=== PATIENT | female | born 1940 | race Caucasian/White ===

== ENCOUNTER → 2024-04-20 15:22 | Outpatient (REF) | payer MEDICARE, BC, SELFPAY | LOC: WDC 15:22 | PROVIDERS: ATTENDING PHYSICIAN Internal Medicine | DX: Z12.31 Encounter for screening mammogram for malignant neoplasm of breast (principal) | CPT/HCPCS: 77063; 77067 ==

== ENCOUNTER → 2024-05-03 10:32 | Outpatient (REF) | payer MEDICARE, BC, SELFPAY | LOC: RAD 10:32 | PROVIDERS: ATTENDING PHYSICIAN Internal Medicine | DX: M54.2 Cervicalgia (principal) | CPT/HCPCS: 72040 ==

== ENCOUNTER → 2024-05-26 06:53 | Outpatient (REF) | payer MEDICARE, BC, SELFPAY | LOC: PAVMRI 06:53 | PROVIDERS: ATTENDING PHYSICIAN Internal Medicine | DX: M79.604 Pain in right leg (principal) | CPT/HCPCS: 72148 ==

== ENCOUNTER → 2024-07-27 08:56 | Outpatient (REF) | payer MEDICARE, BC, SELFPAY | LOC: RAD 08:56 | PROVIDERS: ATTENDING PHYSICIAN Physical Medicine & Rehabilitation; FAMILY PHYSICIAN Internal Medicine | DX: M25.551 Pain in right hip (principal) | CPT/HCPCS: 73502 ==

== ENCOUNTER → 2024-08-03 09:57 | Outpatient (REF) | payer MEDICARE, BC, SELFPAY | LOC: RCS 09:57 | PROVIDERS: ATTENDING PHYSICIAN Internal Medicine Cardiovascular Disease; FAMILY PHYSICIAN Internal Medicine | DX: I35.8 Other nonrheumatic aortic valve disorders (principal) | CPT/HCPCS: 93306 ==

== ENCOUNTER → 2024-09-23 07:20 | Outpatient (REF) | payer MEDICARE, BC, SELFPAY | LOC: PAVMRI 07:20 | PROVIDERS: ATTENDING PHYSICIAN Physician Assistant; FAMILY PHYSICIAN Internal Medicine | DX: M54.12 Radiculopathy, cervical region (principal) | CPT/HCPCS: 72141; 72146; 72148 ==

== ENCOUNTER → 2025-01-17 10:32 | Outpatient (REF) | payer MEDICARE, SELFPAY | LOC: RCS 10:32 | PROVIDERS: ATTENDING PHYSICIAN Pain Medicine Interventional Pain Medicine | DX: Z01.818 Encounter for other preprocedural examination (principal) | CPT/HCPCS: 93005 ==

== ENCOUNTER → 2025-02-07 09:25 | Outpatient (REF) | payer MEDICARE, BC, SELFPAY | LOC: WDC 09:25 | PROVIDERS: ATTENDING PHYSICIAN Internal Medicine | DX: N64.4 Mastodynia (principal) | CPT/HCPCS: 76642; 77062; 77066 ==

== ENCOUNTER 2025-08-01 18:24 | Inpatient (IN) | payer MEDICARE, BC, SELFPAY ==
[2025-08-01] VITALS (24 sets, daily range): BP systolic 154–214; BP diastolic 56–159; BMI 30.3; BMI 29.0
--- NOTE | 2025-08-01 12:32 | ED.GENMED ---
History of Present Illness
General
Chief Complaint: Chest Pain
Time Seen by Provider: 08/01/25 12:32
History of Present Illness
History of Present Illness:
FOCUSED PAST MEDICAL HISTORY
- Diverticular disease with colon resection, skin cancer, bullous pemphigoid
REVIEW OF OLD RECORDS
- Sinus 68, left axis deviation, no significant change from 01/17/2025
Note:
CHIEF COMPLAINT(S)
Chest pressure.
HISTORY OF PRESENT ILLNESS
The patient is an 85-year-old female who presents with complaints of chest pressure, which she describes as annoying but not excruciating. The sensation is particularly noticeable when lying down on one side, enough to wake her up. She also reports
feeling the pressure when stationary, and it occasionally radiates to the shoulder blades. The patient denies coronary disease but reports a history of rheumatic fever as a child. She does not have cardiac valve issues or replacements, and her last
cardiac stress test was performed several years ago. She saw Dr. Olmedo in the past. She has no exertional symptoms.
When the chest is pressed in a specific area, the pressure intensifies, though the patient notes that pressing does not always exacerbate her symptoms. She acknowledges a sensation similar to a weight on her chest, but she denies difficulty
breathing during this episode. No increase in symptoms occurs with exertion, and she did not experience diaphoresis or swelling in the legs. The patient notes she did not take her usual blood pressure medications today, which include Metoprolol and
Losartan, both at a dose of 100 mg.
She recalls experiencing a cough previously for which she visited an ENT and was prescribed an inhaler. Initially, no apparent cause for the cough was found, and it disrupted her �s sleep due to its severity. She also mentions being on
Escitalopram and a potential interaction with the inhaler constituted concerns about rhythm disturbances; however, her current rhythm appears normal.
The patient has a benign essential tremor. She has not noticed an increase in chest pain with exertion or stairs, as she is mostly sedentary at home due to her family�s restrictions on her mobility. She denies recent significant cough or shortness
of breath.
PAST MEDICAL AND SURIGICAL HISTORY
The patient has a history of rheumatic fever as a child.
SOCIAL DETERMINANTS AFFECTING HEALTH
The patient reports family-imposed limitations on using stairs at home, indicating household stress related to mobility concerns.
MEDICATIONS
- Metoprolol 100 mg twice a day
- Losartan 100 mg
- Escitalopram (dosage not specified)
- The patient is also on lisinopril
PHYSICAL EXAM
General: Alert, no acute distress.
Skin: Warm, dry.
Head: Normocephalic, atraumatic.
Neck: Supple, trachea midline.
Eye, ears, nose, mouth, and throat: Oral mucosa moist.
Cardiovascular: Heart is regular with ectopy, normal peripheral perfusion, no edema noted. Occasional ectopy. No significant chest wall tenderness.
Respiratory: Respirations are non-labored.
Gastrointestinal: Abdomen nondistended.
Back: Normal range of motion, normal alignment.
Musculoskeletal: Normal range of motion, normal strength.
Neurological: Alert and oriented to person, place, time, and situation, no focal neurological deficit observed, essential tremor noted to the upper extremities.
Psychiatric: Cooperative, appropriate mood & affect.
PLAN
The plan includes performing blood work and a CT chest to evaluate the cause of the chest pressure further. The patient is advised to review her blood pressure medications since taking both Lisinopril and Losartan is not standard. The attending
physician will consider stopping Lisinopril due to its potential to cause a cough and will discuss this with the patients primary care provider. The cardiac blood work will be conducted to rule out acute coronary syndrome, given the reported chest
pressure.
DIFFERENTIAL DIAGNOSIS
The Differential Diagnosis includes, in no particular order and is not limited to:
1. Gastroesophageal reflux disease (GERD)
2. Costochondritis
3. Musculoskeletal pain
4. Hypertension-related symptoms
5. Anxiety-induced chest pain
6. Angina pectoris
7. Coronary artery disease
8. Pulmonary embolism
9. Congestive heart failure
10. Aortic valve stenosis or insufficiency
RADIOLOGY
- CTA chest obtained which shows no dissection or PE
EKG
- Sinus 68, LVH, left axis deviation, similar appearance on 09/17/2023
LABS
- CBC normal, troponin normal, chemistries
UPDATE
- The patient forgot to take her blood pressure medications today and these were given shortly after arrival. Initial troponin EKG unremarkable. However she did have some ongoing chest discomfort described as pressure but she appeared fairly
comfortable. Blood pressure remained elevated despite giving the antihypertensives. Trying a dose of nitroglycerin as well. She had pain that rating to the back, we did a CTA that showed no sign of dissection or PE.
SUMMARY OF ENCOUNTER
The patient, an 85-year-old female, presented to the emergency department with ongoing chest pressure described as an annoying sensation, often noticeable when lying down or stationary. The pressure occasionally radiates to the shoulder blades.
There was a concern due to her high blood pressure and the nature of her chest symptoms, which can sometimes indicate a cardiac event such as a heart attack. However, initial evaluations did not show diagnostic confirmation of a heart attack or
other acute severe conditions like an aortic dissection or pulmonary embolism. The decision was made to admit the patient for further monitoring and evaluation by a hospitalist to manage the continued symptoms and elevated blood pressure.
DISPOSITION
Admit
MANAGEMENT OF THE PATIENTS CARE WAS DISCUSSED WITH
A hospitalist was involved to evaluate the patient for admission.
MEDICATION RECONCILIATION
The patient reported taking two doses of baby aspirin (81 mg each) earlier today.
MEDICAL DECISION MAKING
- Complexity of Data Reviewed: Chronic conditions affecting care include a history of rheumatic fever and hypertension. The Differential Diagnosis considered includes gastroesophageal reflux disease (GERD), costochondritis, musculoskeletal pain,
hypertension-related symptoms, anxiety-induced chest pain, angina pectoris, coronary artery disease, pulmonary embolism, congestive heart failure, and aortic valve stenosis or insufficiency.
- Data:
Category 3: Management discussion involved consultation with a hospitalist for admission due to ongoing chest pressure and elevated blood pressure.
- Risk: Hospitalization was decided upon due to the risk of complications from ongoing chest pressure and elevated blood pressure, warranting closer monitoring and evaluation.
DIAGNOSIS
1. Chest pain, unspecified (ICD-10: R07.9)
2. Essential (primary) hypertension (ICD-10: I10)
The patient's initial systolic was around 200 but she did not take her morning blood pressure medications which include losartan and metoprolol. Of note she is also supposed to be on lisinopril and I did inform her that could be a cause of her
ongoing cough. She has ongoing chest pressure but she has had 2 unremarkable troponins. Considered discharge however she is markedly hypertensive with systolic still around 200 despite getting her normal antihypertensives and 2 rounds of
nitroglycerin. She overall does feel improved and less chest pressure with the nitroglycerin. She did take aspirin earlier today.
Past History
Past History
ED Past Medical History: HTN, Hypercholesterolemia and Other (Current vomiting/GI issues)
ED Past Surgical History: Cholecystectomy, Gynecological and Other
Social History
Tobacco: Non-smoker
Personal:
Living: with family
Family History
Family History: Other (Noncontributory)
Phy Exam
Physical Exam
Physical Exam:
See HPI
Scores
Heart Score for Chest Pain Patients
STEMI patient?: No
History: Moderately Suspicious
ECG: Nonspecific Repolarization
Age: >/= 65 years
Risk Factors: 1 or 2 Risk Factors
Troponin: </= Normal Limit
Heart Score for Chest Pain Patients: 5
Heart Score Risk: 20.3% MACE over next 6 weeks
Course
Orders/Labs/Results
Orders:
Orders
08/01/25 12:22
EKG [Electrocardiogram (*1)] Urgent
Reason for Study: Chest Pain
EKG- Treatment ONCE
08/01/25 12:50
Losartan [Cozaar] 100 mg PO NOW STA
Metoprolol [Lopressor] 100 mg PO NOW STA
08/01/25 12:52
CT Chest Angio W/wo Iv Contras Urgent
Comment:
Reason For Exam: chest pain to back, hypertensive
08/01/25 13:01
Complete Blood Count/With Diff Urgent
Comprehensive Metabolic Panel Urgent
TSH Reflex To Free T4 Urgent
Troponin I Urgent
08/01/25 15:59
Nitroglycerin Sublingual [Nitrostat (Sublingual)] 0.4 mg SL NOW STA
08/01/25 16:09
Electrocardiogram (*1) Urgent
Reason for Study: Chest Pain
EKG- Treatment ONCE
08/01/25 16:15
Troponin I Urgent
08/01/25 16:54
Nitroglycerin Sublingual [Nitrostat (Sublingual)] 0.4 mg SL NOW STA
Abnormal Lab Results
08/01/25
13:01
Glucose 128 H mg/dl
(70-99)
08/01/25 13:01
08/01/25 13:01
Vital Signs
Initial and Last Documented VS:
Initial Vital Signs
Temp Pulse Resp BP Pulse Ox
36.8 C 70 18 182/90 98
08/01/25 12:19 08/01/25 12:19 08/01/25 12:19 08/01/25 12:19 08/01/25 12:19
Last Documented Vital Signs
Temp Pulse Resp BP Pulse Ox
36.8 C 61 19 197/100 99
08/01/25 12:19 08/01/25 16:15 08/01/25 16:15 08/01/25 16:59 08/01/25 16:15
*Pulse Oximetry
SaO2: 98
Oxygen Mode of Delivery: Room air
Patient hypoxic: no
*Critical Care Note
Total Time (30-74mins, 75-104mins- exclusive of procedures): Not Applicable
ED Attending Note
-
Portions of this chart may have been created with voice recognition software.� Occasional wrong word or��sound alike� substitutions may have occurred due to the inherent limitations of voice recognition software.
Discharge Plan
Departure
Patient Disposition: Admit
Date of Disposition: 08/01/25
Time of Disposition: 17:05
Presentation/result/management discussed w/ accepting MD/DO: Hospitalist
Patient with high blood pressure during this ER visit?: Yes
Discharge Problem:
Chest pain
Prescriptions:
No Action
levothyroxine 75 MCG tablet
75 mcg PO DAILY
escitalopram oxalate 10 MG tablet
10 mg PO HS
metoprolol succinate 100 MG tablet extended release 24 hr
100 mg PO BID
aspirin 81 MG tablet,delayed release (DR/EC)
81 mg PO HS
rosuvastatin 5 MG tablet
5 mg PO HS
PreserVision AREDS-2 1 EACH capsule
1 ea PO BID
meloxicam 7.5 mg tablet
7.5 mg PO DAILY
gabapentin 100 mg capsule
200 mg PO TID
losartan 100 mg tablet
100 mg PO DAILY
amlodipine 5 mg Tablet
5 mg PO DAILY Qty: 30 0RF
prednisone 10 mg tablet
10 mg PO DAILY Qty: 36 0RF
Rx Instructions:
Taper: 50mg daily x 6 days, 30mg daily x 1 day, 20mg daily x 1 day, 10mg daily x 1 day
Referrals:
Marei Rose MD [Family Provider, Internal Medicine]
Interventions
Interventions:
*Risk Screen - Suicide Last Done: 08/01/25 12:19
*General Assessment Last Done: 08/01/25 12:19
*Neglect/Abuse Screening Last Done: 08/01/25 13:18
*ED COVID-19 Vaccine History Last Done: 08/01/25 12:19
*ED Influenza Vaccine History Last Done: 08/01/25 12:19
ED- Cardiac Assessment Last Done: 08/01/25 13:00
Discharge Date and Time
Print Language: MACEDONIAN
[2025-08-01] MEDS: COZAAR 100 MG PO (13:06)
[2025-08-01] MEDS: LOPRESSOR 100 MG PO (13:06)
[2025-08-01 13:09] LABS: Hematocrit 37.8 % (37.0-47.0); Hemoglobin 12.9 g/dL (12.0-16.0); Mean Corp Hgb Conc. 34.1 g/dL (33.0-37.0); Mean Corpuscular Volume 82.4 fL (81.0-99.0); Nucleated Red Blood Cells % 0 %; Platelet Count 168 10^3/uL (130-400); Red Cell Dist. Width 12.9 % (11.5-14.5)
[2025-08-01 13:25] LABS: ALT (SGPT) 15 U/L (0-35); AST (SGOT) 18 U/L (14-36); Albumin 4.4 g/dl (3.5-5.0); Alkaline Phosphatase 66 U/L (38-126); Blood Urea Nitrogen 15 mg/dl (7-17); Calcium 9.4 mg/dl (8.4-10.2); Carbon Dioxide 29 mmol/L (22-30); Chloride 104 mmol/L (98-107); Estimated Creatinine Clearance 55 ml/min; Glucose 128 mg/dl (70-99); Potassium 3.7 mmol/L (3.5-5.1); Sodium 140 mmol/L (135-145); Total Protein 6.8 g/dl (6.3-8.2); eGFR > 60.00
[2025-08-01 13:37] LABS: Troponin I < 0.012 ng/ml
[2025-08-01] MEDS: NITROSTAT (SUBLINGUAL) 0.4 MG SL ×3 (16:13→23:20)
[2025-08-01 16:54] LABS: Troponin I < 0.012 ng/ml
--- NOTE | 2025-08-01 17:01 | HPS.HSE ---
Family Physician
-
Family Physician: Marie Rose
Chief Complaint
-
chest pressure
History of Present Illness
Patient is a 85-year-old female with past medical history significant for hypertension, hyperlipidemia, hypothyroidism and paroxysmal supraventricular tachycardia who presented to [facility] for evaluation of chest pressure. Patient reports that she
started with chest pressure diffusely (R>L) and radiated to back between shoulder blades. She states that the pain does not seem to be triggered by exertion and is intermittent when at rest. Patient denies any diaphoresis, dizziness, shortness of
breath, palpitations, nausea or vomiting.
Medical History
Past Medical History
Past Medical History: Reports Other
Additional Past Medical History:
hypertension
hyperlipidemia
hypothyroidism
paroxysmal supraventricular tachycardia
diverticulitis
Hx rheumatic fever
Hx Lyme disease
Past Surgical History: Reports Other
Additional Past Surgical History:
cholecystectomy
bowel reduction
hysterectomy
skin ca removed
Social History
Tobacco: Non-smoker
Alcohol: None
Drug: None
Personal: Single
Living: Alone
Family History
Family History: Not pertinent
Allergies / Home Medications
Allergies reflects when Allergies were last updated in [employer].
Home Medications with original date entered in [employer]
Allergy/Medication List:
Allergies
Allergy/AdvReac Type Severity Reaction Status Date / Time
Gadolinium-Containing Allergy Unknown Verified 08/01/25 12:54
Contrast Medi
tetanus toxoid, adsorbed Allergy Swelling Verified 08/01/25 12:54
Home Medications
escitalopram oxalate 10 mg tablet 10 mg PO HS 11/16/15
levothyroxine 75 mcg tablet 75 mcg PO DAILY 11/16/15
metoprolol succinate 100 mg tablet,extended release 24 hr 100 mg PO BID 11/16/15
rosuvastatin 5 mg tablet 5 mg PO HS 01/10/16
losartan 100 mg tablet 100 mg PO DAILY 09/17/23
lisinopril 10 mg tablet 10 mg PO BID 08/01/25
Review of Systems
-
History Source: Patient
Constitutional: Denies Fever or Chills
EENT: Denies Sore Throat
Respiratory: Denies Cough or Trouble Breathing
Cardiac: Reports Chest Pain; Denies Diaphoresis, Palpitations or Syncope
Abdomen/GI: Denies Abdominal Pain, Nausea, Vomiting or Diarrhea
: Denies Dysuria, Frequency or Urgency
Musculoskeletal: Denies Joint Pain or Joint Swelling
Skin: Denies Rash
Neurological: Reports Headache; Denies Dizzy, Weakness or Numbness
Physical Exam
Vital Signs
Vital Signs
Temp Pulse Resp BP Pulse Ox
98.3 F 61 19 197/100 99
08/01/25 12:19 08/01/25 16:15 08/01/25 16:15 08/01/25 16:59 08/01/25 16:15
Physical Exam
General: Well Developed, Well Nourished, Conversant and Obese
HEENT: NormoCephalic, Moist mucous membranes, Nose Appears Normal and Ears Appear Normal
Respiratory: Clear and Non Labored Respirations
Cardiac: S1/S2 and Regular Rhythm; No Murmur, Rub, Gallop or Peripheral Edema
Breast: Deferred by me
GI: Soft, Non Tender, Non Distended and Normal Bowel Sounds
Rectal: Deferred by Provider
Genito-urinary: Deferred by me
Musculoskeletal: No Clubbing, No Cyanosis and No Edema
Skin: Warm and IV/Catheter Site
Neuro: Awake, AO x 3 and Nonfocal/grossly intact
Hematologic/Lymphatic: No Lymphadenopathy
Psych: Calm
Laboratory Results
-
08/01/25 13:01
08/01/25 13:01
Laboratory Results
Total Bilirubin 0.8 mg/dl (0.2-1.3) 08/01/25 13:01
AST 18 U/L (14-36) 08/01/25 13:01
ALT 15 U/L (0-35) 08/01/25 13:01
Alkaline Phosphatase 66 U/L (38-126) 08/01/25 13:01
Troponin I < 0.012 ng/ml 08/01/25 16:15
Data Reviewed
-
CT Scan: Report Reviewed by me (Chest Angio: Examination is negative for thoracic aortic dissection or aneurysm. Not mentioned above, the central pulmonary arteries are well-opacified and there is no evidence for central pulmonary embolism. Mild
aortic valvular calcification. Moderate mitral annular calcification. Small focus o)
Medical Tests (Nuc Med, Echo, EKG etc): Report Reviewed by me (EKG: SINUS RHYTHM WITH PREMATURE ATRIAL COMPLEXES MODERATE VOLTAGE CRITERIA FOR LVH, MAY BE NORMAL VARIANT ( R in aVL , [place] product ) NONSPECIFIC ST AND T WAVE ABNORMALITY)
Lab Data: Labs Reviewed by me
Impression/Plan
-
IMPRESSION/PLAN:
#chest pressure 2/2 NSTEMI vs. unstable/stable angina vs. GERD vs. hypertension vs. PE
#hypertension
#hypertensive urgency
diffuse chest pressure radiating to back, intermittent and not triggered by exertion
Trop < 0.012, 0.012, pending
EKG: SINUS RHYTHM WITH PREMATURE ATRIAL COMPLEXES
MODERATE VOLTAGE CRITERIA FOR LVH, MAY BE NORMAL VARIANT ( R in aVL , [place] product )
NONSPECIFIC ST AND T WAVE ABNORMALITY
CT Chest Angio: Examination is negative for thoracic aortic dissection or aneurysm.
Not mentioned above, the central pulmonary arteries are well-opacified and there is no evidence for central pulmonary embolism.
Mild aortic valvular calcification. Moderate mitral annular calcification.
Small focus of parenchymal opacity in the posterolateral and inferior aspect of the left lower lobe along, probably representing atelectasis and/or scar.
- Admit to ICU
- Nicardipine gtt
- Renal Consult
- ECHO
- Aldosterone/Renin ratio
#hyperlipidemia
- continue rosuvastatin
#hypothyroidism
- continue levothyroxine
- check TSH
#paroxysmal supraventricular tachycardia
- continue metoprolol
Code status: full code
DVT prophylaxis: heparin sq
--- NOTE | 2025-08-01 17:11 | W.PN.UPDATE ---
Addendum entered and electronically signed by Rebekah Montenegro MD 08/01/25 18:21:
Given initiation of Nicardipine gtt dropped SBP to 150's and off gtt SBP 170's (which is goal), OK to admit to telemetry with PRN Hydralazine. Discussed with Sketch Artist and Plastic Surgery Assistant. If SBP increases again and persistent over 180's, would
consider transfer to ICU on Nicardipine gtt starting at 2.5 mg/hr
Original Note:
Update Note
Progress Note Update
This is an addendum to H&P written by COUNTER WAITRESS/WAITER Nataly San
I saw and examined the patient.
The COUNTER WAITRESS/WAITER's note was reviewed and I agree with the note.
Comment:
Ms. Rebecca Boucher is a 85 yo woman with hx essential HTN, HUGO, HLD, Hypothyroidism, Depression/Anxiety presents to the ER complaining of chest pressure at rest, radiating to shoulder blades. She reported that she didn't take her blood pressure
medications today. Patient's SBP was in 200's in the ER, despite home regimen 4 hours earlier. Initially started Nicardipine but with small dose her SBP dropped to 150's, now off it is 170's. Ok to admit to telemetry with PRN IV Hydralazine.
Triage VS: T 36.8, P 70, RR 18, BP 182/90, Spo2 92%
On exam patient is AAO x 3, KO, CV: S1, S2, RRR; Chest clear, abdomen benign, trace peal edema
SBP up to 200's
LABS: WBC 6.5, Hg 12.9, PLT 168, Na 140, K+ 3.7, CO2 29, BUN 15, Cr 0.8, Glucose 128, liver enzymes WNL, Trop negative x 2
EKG: NSR with PAC's, no significant changes from prior
CTA
IMPRESSION: Examination is negative for thoracic aortic dissection or aneurysm.
Not mentioned above, the central pulmonary arteries are well-opacified and there is no evidence for central pulmonary embolism.
Mild aortic valvular calcification. Moderate mitral annular calcification.
Small focus of parenchymal opacity in the posterolateral and inferior aspect of the left lower lobe along, probably representing atelectasis and/or scar.
Hypertensive Urgency
-chest pain in setting of uncontrolled BP with negative cardiac enzymes, no dissection or PE; chest pain now resolved with improved BP
-admit to telemetry
-IV Hydralazine PRN
-trend Troponin
-check renin/aldosterone
-TTE from 08/25 with normal biventricular size and systolic function, mild with trace AR
-continue home Metoprolol and Losartan (unclear why also on Lisinopril, will hold)
-Renal consult
HUGO
HLD - SOAKING TANK WORKER Statin
Hypothyroidism - SOAKING TANK WORKER Synthroid
Depression/Anxiety - SOAKING TANK WORKER Lexapro
FULL CODE
76 minutes spent on patient care
[2025-08-01] MEDS: CARDENE 200 IV (17:30)
[2025-08-01] MEDS: TYLENOL 1000 MG PO (18:46)
--- NOTE | 2025-08-01 20:44 | PTCARENOTE ---
Rn marketing research coordinator- Patient's admission assessment completed remotely via phone.
[2025-08-01] MEDS: APRESOLINE 10 MG IV (21:01)
--- NOTE | 2025-08-01 21:15 | PTCARENOTE ---
Pt arrived to unit calm and cooperative, assist x 1 (standby). Pt ambulated with standby from stretcher to bed. Pt AAOx3, no chest pain or discomfort upon arrival, oriented to unit, call caldwell in reach.
[2025-08-01] MEDS: CRESTOR 5 MG PO (22:06)
[2025-08-01] MEDS: LEXAPRO 10 MG PO (22:06)
[2025-08-01] MEDS: TOPROL XL 100 MG PO (22:06)
[2025-08-01 22:14] LABS: Troponin I < 0.012 ng/ml
[2025-08-01 23:34] LABS: Glucose - Point of Care 159 mg/dl (70-99)
--- NOTE | 2025-08-01 23:35 | RR ---
Addendum entered by Carie Isaac RN 08/02/25 04:05:
Pt transferred med tele to IVU*
Addendum entered by Carie Isaac RN 08/02/25 03:59:
[id number]: Timings Approximate
2100:
Pt initially reported as sinus bradycardia. On RN arrival, pt in NSR with prolonged QT per monitor.
BP: 208/72 (manual)
HR: 58
Asymptomatic
PRN IV hydralazine administered for elevated BP- effect pending
RN approved with INSTRUMENT CALIBRATOR notification the administration of metoprolol xl 100 mg PO per order, INSTRUMENT CALIBRATOR notified of BP and PRN medication given
2205:
BP: 187/79
HR: 59
Asymptomatic
metoprolol XL, lexapro, and crestor given per order
INSTRUMENT CALIBRATOR re notified
2223:
BP: 154/91
asymptomatic
INSTRUMENT CALIBRATOR notified
[id number]:
Pt ambulated to bathroom. Upon return pt reports SOB and states 'I don't feel so good' Pt observed shaking and then verbalized chest pressure.
cdl dedicated truck driver notified for additional assessment.
2300:
EKG obtained- reveals afib with RVR
Pt reports chest pain 5/10 radiating to jaw
Pt stated pain began approx 15 min prior
SOB continues. Pale appearance noted.
INSTRUMENT CALIBRATOR notified.
2319:
BP: 148/76 HR: 60 O2: ((%
nitrostat administered per order, no effect
chest pain worsens to 7/10, now radiating to jaw, head
Pt reports increased dizziness and weakness in arms, weak hand grasps
INSTRUMENT CALIBRATOR renotified.
2334:
Due to continuous worsening of sx, FOOD SUPERVISOR activated.
BP: 89/63
AAOx3 but drowsy
IVFs initiated per FOOD SUPERVISOR orders
Transferred to IMU.
VS further EKGs up to handoff recorded by FOOD SUPERVISOR upon transfer.
Original Note:
A Rapid Response was called on this patient, please see Rapid Response form.
[2025-08-01 23:56] LABS: Hematocrit 38.1 % (37.0-47.0); Hemoglobin 13.3 g/dL (12.0-16.0); Mean Corp Hgb Conc. 34.9 g/dL (33.0-37.0); Mean Corpuscular Volume 80.0 fL (81.0-99.0); Platelet Count 193 10^3/uL (130-400); Red Cell Dist. Width 12.9 % (11.5-14.5)
[2025-08-02] VITALS (30 sets, daily range): BP systolic 102–175; BP diastolic 62–96; BMI 28.9
[2025-08-02] MEDS: HEPARIN 4000 UNITS IV (00:06)
[2025-08-02 00:07] LABS: APTT 33.5 Sec (23.4-35.0)
[2025-08-02] MEDS: HEPARIN 25000 UNITS/250 ML IV (00:07)
[2025-08-02 00:08] LABS: Troponin I < 0.012 ng/ml
--- NOTE | 2025-08-02 00:15 | PTCARENOTE ---
Pt received from [facility] after rapid response. Pt on monitor-afib noted. IV NSS bolus infusing. Heparin gtt started. Pt states chest pain decreasing. Assessment as charted.
--- NOTE | 2025-08-02 00:48 | W.PN.UPDATE ---
Update Note
Progress Note Update
Rapid response called for this patient due to c/o chest pain radiating to her jaw and back. She notes worse episode than what brought her to ER earlier. NTG SL given x1 with some cp relief but bp did drop to 80s systolic. Reviewed with Dr. Curran
from [facility] Card[facility]. Will transfer to IVU level of care in ICU. Post interventions she states still with dizziness (has hx vertigo) but bp better at 138/82. Liter of NS..heparin gtt continues. Labs unremarkable. CP better. 12/12. Describes it as
central chest boring into her back. No past hx of afib or manager lab intervention. Had rheumatic fever as child and +murmur. Lungs clear, no edema, room air 97% CT today -PE, - aortic dissection. Echo from 2023 LVEF 65%. Normal biventricular size and
systolic function without regional wall motion abnormality. Mild aortic stenosis with trace aortic regurgitation. Compared to previous echo 12/09/2019 the aortic sclerosis has progressed to mild stenosis. Dr. Curran again updated with new information.
[2025-08-02] MEDS: MELATONIN 5 MG PO (01:02)
--- NOTE | 2025-08-02 01:13 | PTCARENOTE ---
Pt assisted OOB to BSC to void and have BM. Pt requesting something to sleep. Med with melatonin after discussion with CORPORATE LIBRARIAN. Will continue to monitor.
[2025-08-02] MEDS: SYNTHROID 75 MCG PO (05:37)
[2025-08-02 06:11] LABS: Hematocrit 38.5 % (37.0-47.0); Hemoglobin 13.1 g/dL (12.0-16.0); Mean Corp Hgb Conc. 34.0 g/dL (33.0-37.0); Mean Corpuscular Volume 81.7 fL (81.0-99.0); Platelet Count 185 10^3/uL (130-400); Red Cell Dist. Width 13.0 % (11.5-14.5)
[2025-08-02 06:25] LABS: APTT 155.7 Sec (23.4-35.0)
[2025-08-02 06:36] LABS: Blood Urea Nitrogen 12 mg/dl (7-17); Calcium 8.8 mg/dl (8.4-10.2); Carbon Dioxide 25 mmol/L (22-30); Chloride 109 mmol/L (98-107); Estimated Creatinine Clearance 61 ml/min; Glucose 123 mg/dl (70-99); HDL Cholesterol 43 mg/dl; LDL Cholesterol, Calculated 82 mg/dl; Potassium 3.7 mmol/L (3.5-5.1); Sodium 140 mmol/L (135-145); Very Low Density Lipoprotein 26 mg/dl (0-30); eGFR > 60.00
--- NOTE | 2025-08-02 06:37 | PTCARENOTE ---
Pt slept for a few hours. No further chest pain noted.
[2025-08-02 06:51] LABS: Troponin I 0.048 ng/ml
--- NOTE | 2025-08-02 06:52 | PTCARENOTE ---
chan HUI notified of troponin result
[2025-08-02 07:00] LABS: TSH 2.01 uIU/ml (0.47-4.68)
--- NOTE | 2025-08-02 08:00 | PTCARENOTE ---
received patient from director of maintenance. patient AAOx4 pleasant, no pain, see assessment as charted. patient is on heparin gtt, restarted at 0730. awaiting cardiology for plan of care. orders reviewed.
--- NOTE | 2025-08-02 08:26 | CON.CAR ---
Addendum entered and electronically signed by Alexandre Hopkins MD 08/02/25 09:56:
Patient seen and examined in collaboration with FOOT PRESS OPERATOR; agree with below.
- 85-year-old female with hypertension, hyperlipidemia, PSVT, and mild presenting with chest pain; found to have hypertensive emergency.
- Patient with a recurrent episode of chest pain overnight after blood pressure was controlled; now with mild troponin elevation suggestive of an NSTEMI.
- Continue heparin drip; given full dose aspirin.
- Cardiac catheterization will be arranged for today; case discussed with interventional cardiology.
- Continue rosuvastatin.
- Continue cardiac monitor technician.
- Patient was found to have new onset PAF overnight (asymptomatic); continue heparin drip and current high home dose of Toprol-XL 100 mg BID.
Original Note:
Consultation
Consultation Request
Date/Time Consultation Requested: 08/01/25 996
Date/Time Consultation Performed: 08/02/25825
Requesting Provider: Laurie Lopez NP
Performing Provider: Maribel HUI for Dr. Hopkins
Reason for Consultation: CP
Medical History
-
Chief Complaint: chest discomfort
History of Present Illness:
85 y/o female (patient of Dr. Olmedo) with pSVT, HTN, HLD, acute vestibular neuritis, OA, HUGO, and mild who is here for evaluation of chest discomfort. This started Thursday night and felt like a right-sided pressure that radiated to her
shoulder blades. Sometimes the right-sided pain hurt to tough. It lasted for minutes and happened about 5-7 times per day- nothing seemed to bring it on or make it go away (such as eating or exertion). It woke her up at times. She had a cough two
weeks prior. No SOB. Her discomfort continued and worsened yesterday. Overnight, she developed a worsened pressure across her whole chest with radiation to the jaw. She is not clear on the timeline, but there is an update note describing this issue
at 0048. She also had head pain, dizziness, palpitations. Currently, she is CP free. Of note, BP's on arrival were severely elevated and she was briefly on Cardene and also received hydralazine. Finally, she has new AFIB, which is currently
rate-controlled, but was elevated at times. She is on IV heparin. Troponin is 0.048. She is in no distress at the time of my assessment.
Past Medical History
Past Medical History: Arrhythmias, HTN, Hypercholesterolemia, Valvular Disease and Other (as above)
Social History
Tobacco: Non-Smoker
Personal:
Living: With Family
Family History
Family History: Reviewed & Not Pertinent
Allergies / Home Medications
Allergy/AdvReac Type Severity Reaction Status Date / Time
Gadolinium-Containing Allergy Unknown Verified 08/01/25 12:54
Contrast Medi
tetanus toxoid, adsorbed Allergy Swelling Verified 08/01/25 12:54
�Medication �Instructions �Recorded �Confirmed �Type
escitalopram oxalate 10 mg tablet 10 mg PO HS 11/16/15 08/01/25 History
levothyroxine 75 mcg tablet 75 mcg PO DAILY 11/16/15 08/01/25 History
metoprolol succinate 100 mg 100 mg PO BID 11/16/15 08/01/25 History
tablet,extended release 24 hr
rosuvastatin 5 mg tablet 5 mg PO HS 01/10/16 08/01/25 History
losartan 100 mg tablet 100 mg PO DAILY 09/17/23 08/01/25 History
lisinopril 10 mg tablet 10 mg PO BID 08/01/25 08/01/25 History
Review of Systems
-
History Source: Patient
All other systems: Negative unless noted
Respiratory: Cough
Cardiac: Chest Pain
Physical Exam
Vital Signs
Temp Pulse Resp BP Pulse Ox
97.5 F 94 19 129/71 97
08/02/25 07:38 08/02/25 06:00 08/02/25 06:00 08/02/25 06:00 08/02/25 06:00
Lab Results
08/02/25 05:48
08/02/25 05:48
Troponin I 0.048 ng/ml H* D 08/02/25 05:48
Physical Exam
General: Well Developed, Well Nourished and No Apparent Distress
HEENT: Normocephalic and Anicteric
Respiratory: Clear and Non Labored Respirations
Cardiac: Irregular Rhythm
Musculoskeletal: No Edema
Skin: Warm and Dry
Neuro: AO x 3
Psych: Calm
Impression / Plan
-
NSTEMI:
-this diagnosis is threat to life
-ASA full dose now
-CP free currently
-trend trops to peak, follow EKG's, obtain echo
-continue BB. Increase statin (LDL 82).
-continue IV heparin, which requires intensive monitoring
-check hgb A1C
AFIB: new diagnosis, type unknown
-currently rate-controlled and asymptomatic- continue metoprolol.
-continue IV heparin for now. [id number] score is 5 for age, female, hypertension, and suspected CAD. Eventual transition to OAC, but w/u as above needed first.
HTN:
-severe on arrival
-improved
-continue BB and ARB. Of note, her med rec suggests ACEI and ARB- she does not be on both.
HLD:
-LDL 82, with NSTEMI will increase dose
Data Reviewed
-
EKG: Tracing Personally Visualized and interpreted (AFIB with RVR, lateral ST/T abnormalities)
CT Scan: Report Reviewed by me (CTA: Examination is negative for thoracic aortic dissection or aneurysm. Not mentioned above, the central pulmonary arteries are well-opacified and there is no evidence for central pulmonary embolism. Mild aortic
valvular calcification. Moderate mitral annular calcification. )
Medical Tests (Nuc Med, Echo etc): Other (echo 2023: normal EF, mild )
Labs: Labs Reviewed by me
Scores
DELMY for NSTEMI
Age >/= 65: Yes
>/=3 CAD risk factors-HTN,High Chol,Fam hx CAD,DM,Smoker: No
Known CAD (stenosis >/=50%): No
ASA use in past 7 days: Yes
Severe angina (>/= 2 episodes in 24 hrs): Yes
EKG ST Changes >/= 0.5mm: Yes
Positive cardiac marker: Yes
Score: 5
Risk at 14 days-mortality, new/recurrent MD, severe ischemia: Intermediate Risk- 26% Risk at 14 days- all cause mortality, new or recurrent MD, or severe recurrent ischemia requiring urgent revascularization
[2025-08-02] MEDS: COZAAR 100 MG PO (08:39)
[2025-08-02] MEDS: TOPROL XL 100 MG PO ×2 (08:39→20:56)
--- NOTE | 2025-08-02 08:54 | W.PN.HOSP.TC ---
Addendum entered and electronically signed by Rebekah Montenegro MD 08/02/25 09:01:
New Atrial Fibrillation
-CHADS2-Vasc score = 3
-IV heparin gtt as below
-TSH OK
-TTE
-appreciate Cardiology
Original Note:
Today's Communication/Plan
-
see plan
Assessment / Plan
Assessment / Plan
Ms. Rebecca Boucher is a 85 yo woman with hx essential HTN, HUGO, HLD, Hypothyroidism, Depression/Anxiety presents to the ER complaining of chest pressure at rest, radiating to shoulder blades. She reported that she didn't take her blood pressure
medications today. Patient's SBP was in 200's in the ER, despite home regimen 4 hours earlier. Initially started Nicardipine but with small dose her SBP dropped to 150's, off of drip, SBP 170's. Admitted to telemetry but overnight patient had
return of chest pain radiating to jaw and increase in Troponin this AM. Transferred to IVU.
CTA
IMPRESSION: Examination is negative for thoracic aortic dissection or aneurysm.
Not mentioned above, the central pulmonary arteries are well-opacified and there is no evidence for central pulmonary embolism.
Mild aortic valvular calcification. Moderate mitral annular calcification.
Small focus of parenchymal opacity in the posterolateral and inferior aspect of the left lower lobe along, probably representing atelectasis and/or scar.
Hypertensive Urgency
-blood pressures now better on patient's home regimen
-continue to monitor on BRUSH MATERIAL PREPARER Metoprolol, Losartan (holding lisinopril)
-F/U renin/aldosterone ratio
-TTE
-Nephrology consulted
Chest pain, concern for NSTEMI
-Troponin now increased this AM post return of chest pain yesterday evening
-IV Heparin gtt started
-start aspirin
-TTE
-follow up further Cardiology recommendations
HUGO
HLD - BRUSH MATERIAL PREPARER Statin
Hypothyroidism - BRUSH MATERIAL PREPARER Synthroid
Depression/Anxiety - BRUSH MATERIAL PREPARER Lexapro
FULL CODE
51 minutes spent on patient care
Anticipated Discharge: 24 - 48 hours
Subjective/Interval History
-
Date of Service: August 02, 2025
currently chest pain free
no shortness of breath
Objective Data
-
Labs:
Laboratory Results
08/01/25 08/02/25 08/02/25
23:45 05:48 13:30
WBC 9.0 7.1
Hgb 13.3 13.1
Hct 38.1 38.5
Plt Count 193 185
APTT 33.5 155.7 H* Pending
Sodium 140
Potassium 3.7
Chloride 109 H
Carbon Dioxide 25
BUN 12
Creatinine 0.7
Glucose 123 H
Calcium 8.8
Vital Signs:
Vital Signs
Temp Pulse Resp BP Pulse Ox
97.5 F 94 19 129/71 97
08/02/25 07:38 08/02/25 06:00 08/02/25 06:00 08/02/25 06:00 08/02/25 06:00
I&O
08/01/25 08/02/25 08/03/25
06:59 06:59 06:59
Intake Total 1050 / 1050
Balance 1050 / 1050
Review of Systems
-
History Source: Patient
All other systems: Reviewed and negative
Physical Exam
-
General: No Apparent Distress
HEENT: PERRLA
Respiratory: Clear to Auscultation; Negative Wheezes
Cardiac: Regular Rhythm and S1/S2
GI: Soft and Nontender
Musculoskeletal: No Edema
Skin: Warm and Dry; Negative Rash
Neuro: AO x 3
Psych: Calm
Data Reviewed
-
Diagnostic Radiology: Report Reviewed by me
Labs: Labs Reviewed by me
[2025-08-02] MEDS: ASPIRIN 325 MG PO (09:29)
--- NOTE | 2025-08-02 09:44 | W.CON.NEPH ---
Consultation
-
Date/Time Consultation Requested: 08/02/2025 7:30 AM
Date/Time Consultation Performed: 08/02/2025 9:30 AM
Requesting Provider: Dr. Montenegro
Performing Provider: Dr. Domingo
Reason for Consultation: Uncontrolled hypertension
Medical History
-
Chief Complaint: Uncontrolled hypertension
History of Present Illness:
The patient is an 85-year-old female with a past medical history of hypertension maintained on lisinopril losartan and metoprolol, as well as history of dyslipidemia maintained on statin therapy, PSVT on betablocker, and hypothyroidism maintained on
levothyroxine. She presented to the hospital for evaluation of chest pressure which radiated back between her shoulder blades. When she presented to the emergency room her blood pressure was 205/76. She underwent CT angiogram for evaluation of
possible aortic dissection which was negative. Troponin levels were slightly elevated at 0.048. She was initiated on a Cardene drip and then nephrology was consulted for HTN
Past Medical History
hypertension
hyperlipidemia
hypothyroidism
paroxysmal supraventricular tachycardia
diverticulitis
Hx rheumatic fever
Hx Lyme disease
Past Surgical History: Reports Other
Additional Past Surgical History:
cholecystectomy
bowel reduction
hysterectomy
skin ca removed
Social History
Tobacco: Non-Smoker
Alcohol: None
Personal: Single
Living: Alone
Family History
Family History: Not Pertinent
Allergies / Home Medications
Allergy/AdvReac Type Severity Reaction Status Date / Time
Gadolinium-Containing Allergy Unknown Verified 08/01/25 12:54
Contrast Medi
tetanus toxoid, adsorbed Allergy Swelling Verified 08/01/25 12:54
�Medication �Instructions �Recorded �Confirmed �Type
escitalopram oxalate 10 mg tablet 10 mg PO HS 11/16/15 08/01/25 History
levothyroxine 75 mcg tablet 75 mcg PO DAILY 11/16/15 08/01/25 History
metoprolol succinate 100 mg 100 mg PO BID 11/16/15 08/01/25 History
tablet,extended release 24 hr
rosuvastatin 5 mg tablet 5 mg PO HS 01/10/16 08/01/25 History
losartan 100 mg tablet 100 mg PO DAILY 09/17/23 08/01/25 History
lisinopril 10 mg tablet 10 mg PO BID 08/01/25 08/01/25 History
Review of Systems
-
History Source: Patient
All other systems: Negative unless noted
Constitutional: No Symptoms
EENT: No Symptoms
Respiratory: No Symptoms
Cardiac: No Symptoms
Abdomen/GI: No Symptoms
: No Symptoms
Musculoskeletal: No Symptoms
Skin: No Symptoms
Neurological: No Symptoms
Endocrine: No Symptoms
Hematologic/Lymphatic: No Symptoms
Physical Exam
Vital Signs
Vital Signs
Temp Pulse Resp BP Pulse Ox
97.5 F 96 16 130/74 96
08/02/25 07:38 08/02/25 08:00 08/02/25 08:00 08/02/25 08:00 08/02/25 08:00
Lab Results
WBC 7.1 10^3/uL (4.8-10.8) 08/02/25 05:48
RBC 4.71 10^6/uL (4.20-5.40) 08/02/25 05:48
Hgb 13.1 g/dL (12.0-16.0) 08/02/25 05:48
Hct 38.5 % (37.0-47.0) 08/02/25 05:48
Plt Count 185 10^3/uL (130-400) 08/02/25 05:48
Sodium 140 mmol/L (135-145) 08/02/25 05:48
Potassium 3.7 mmol/L (3.5-5.1) 08/02/25 05:48
Chloride 109 mmol/L (98-107) H 08/02/25 05:48
Carbon Dioxide 25 mmol/L (22-30) 08/02/25 05:48
BUN 12 mg/dl (7-17) 08/02/25 05:48
Creatinine 0.7 mg/dL (0.6-1.0) 08/02/25 05:48
eGFR > 60.00 08/02/25 05:48
Glucose 123 mg/dl (70-99) H 08/02/25 05:48
Calcium 8.8 mg/dl (8.4-10.2) 08/02/25 05:48
Albumin 4.4 g/dl (3.5-5.0) 08/01/25 13:01
Physical Exam
General: Well Developed, Well Nourished, Conversant and Obese, no acute distress nontoxic in appearance
HEENT: NormoCephalic, Moist mucous membranes, Nose Appears Normal and Ears Appear Normal
Respiratory: Clear and Non Labored Respirations, normal lung excursion
Cardiac: Irregular irregular
Breast: Deferred by me
GI: Soft, Non Tender, Non Distended and Normal Bowel Sounds
Rectal: Deferred by Provider
Genito-urinary: Deferred by me
Musculoskeletal: No Clubbing, No Cyanosis and No Edema
Skin: Warm and IV/Catheter Site
Neuro: Awake, AO x 3 and Nonfocal/grossly intact
Hematologic/Lymphatic: No Lymphadenopathy
Psych: Calm
Vascular: +1 radial and +1 anterior tibialis pulses
Assessment/Plan
-
Impression
Chest pressure on presentation with uncontrolled hypertension
NSTEMI
New onset atrial fibrillation
History of hypertension
History of hypothyroidism
History of dyslipidemia
Plan:
- I do not believe a secondary hypertensive workup is warranted at this time as her blood pressure is controlled now that she is back on her medications which she did not take yesterday
- Obviously I defer her atrial fibrillation and cardiac issues to cardiology who may be adjusting her antihypertensives to address the aforementioned issues as well
- I would withhold further lisinopril and simply use her current dose of losartan as well as her beta-parth for blood pressure control
--- NOTE | 2025-08-02 12:00 | CM ---
Per Consult request: Cost of Eliquis 5mg PO BID is $125.46/month. Attending aware.
[2025-08-02 12:16] LABS: Troponin I 0.096 ng/ml
--- NOTE | 2025-08-02 14:06 | CM ---
Initial assessment completed with patient with and daughter in room. Patient lives with her , son and 18 y/o grandson in a 2 story plus basement home with B/B on 1st and handicap accessible, 5 steps to enter. SENIOR JAVA J2EE DEVELOPER patient was
independent in ADL's and ambulation with no AD, drives. In the home is a SPC and 3 prong cane. No in-home services. Does have HC-POA. No VA benefits. No psychiatric hospitalizations. PCP is Dr. Marie Rose. Pharmacy is [facility] on [address] in [place].
Discharge POC: Anticipate home with no needs.
[2025-08-02 14:07] LABS: APTT 76.0 Sec (23.4-35.0)
--- NOTE | 2025-08-02 15:30 | PTCARENOTE ---
paint laboratory technician picked up patient. Heparin gtt on hold.
--- NOTE | 2025-08-02 16:30 | PTCARENOTE ---
Addendum entered by Tiffany Esparza RN 08/02/25 16:34:
Pt's daughter at pt bedside. Will continue to monitor.
Original Note:
Received pt from cardiac laborer cement gun placing procedure room. Pt was given sedation for cardiac catheterization and then another pt emergently needed to have a cardiac cath. Mrs Boucher removed from cardiac cath procedure room and brought in to recovery room to
be observed after sedation. Once emergency is complete, Mrs Boucher will return to cardiac laborer cement gun placing procedure room.
--- NOTE | 2025-08-02 19:30 | PTCARENOTE ---
Patient received from [facility]. Right radial TR band intact, pox 98%, radial pulse palpable. Patient AOx3 but drowsy, awakens to voice and tactile stimulation. The patient denies chest pain or pressure. Post cath IVF infusing. Call caldwell within reach.
Family at bedside. Care ongoing.
[2025-08-02 20:39] LABS: Troponin I 0.070 ng/ml
[2025-08-02] MEDS: LEXAPRO 10 MG PO (21:28)
[2025-08-02] MEDS: CRESTOR 20 MG PO (21:28)
--- NOTE | 2025-08-02 22:48 | PTCARENOTE ---
Patient remains resting comfortably in the bed without complaints. Denies chest pain or pressure. Afib on the monitor. Oxygen saturation 95-97% on RA. The patient is AOx3, less drowsy than previously noted. Per Dr. Reynoso, IV heparin is to be
restarted 6 hours after the right radial TR band is removed. TR band removed without issue at 2230. Heparin gtt to be restarted tomorrow morning at [address] Reynoso. Plan of care discussed. Call caldwell within reach. Care ongoing.
[2025-08-03] VITALS (10 sets, daily range): BP systolic 126–164; BP diastolic 53–87; PULSE 70; BMI 28.8
--- NOTE | 2025-08-03 00:11 | ITS.CL.CATH ---
Playground Attendant - Catheterization
Cardiac Catheterization
Procedure Report:
LEFT HEART CATHETERIZATION
Date of Procedure: August 02, 2025
Referring: Alexandre Sandeep
PROCEDURES:
1. Left heart catheterization, coronary angiogram.
2. Moderate sedation.
INDICATION: Concern for NSTEMI
ACCESS: Right radial artery, 6Fr. sheath, under US guidance.
HEMODYNAMICS : (mmHg)
AO (s/d) : 123/74
LVEDP : 22
No significant gradient across the aortic valve to suggest aortic stenosis.
CORONARY FINDINGS
Dominance: Right
Left Main Trunk (LMT): Large caliber vessel that gives rise to the LAD and LCx branches. No angiographically significant disease.
Left Anterior Descending Artery (LAD): Large caliber vessel that gives off 1 major diagonal branches as it courses along the anterior inter-ventricular groove before wrapping around the cardiac apex. Minimal luminal irregularities.
Left Circumflex Artery (LCx): Medium caliber non dominant vessel with one branching OM1. Minimal luminal irregularities.
Right Coronary Artery (RCA): Large caliber dominant vessel that gives rise to the posterior descending artery (RPDA) and postero-lateral ventricular (RPLV) branches distally. Minimal luminal irregularities.
SEDATION: 17 minutes of procedural sedation was utilized. IV Midazolam and IV Fentanyl were administered. An independent medical communication specialist was present to assist with and help manage the patient's level of consciousness and physiologic status.
RADIATION SUMMARY: Fluoro Time (min): 3.0, Dose (mGy): 162.35, DAP (Gy.cm2) : 11.66
Closure Device: There were no immediate intra-procedural complications. The sheath was pulled in the analytical lab technician and a vascular-band applied to the right wrist for radial artery hemostasis using the patent hemostasis technique.
CONCLUSIONS
1. No obstructive CAD.
2. Elevated LVEDP of 22 mmHg.
RECOMMENDATIONS
1. Wean radial band per protocol. Monitor right hand perfusion and for bleeding from the radial site following removal of the vascular-band following trans-radial access.
2. Continue aggressive medical therapy and risk factor modification for secondary CAD prevention.
3. Hydrate with normal saline to mitigate the risk of contrast-induced acute kidney injury.
4. Management of new onset Afib and HTN per primary cardiology team.
Katlyn Reynoso MD, FACC, [facility] [place]
Copy to: Alexandre Hopkins
--- NOTE | 2025-08-03 00:53 | PTCARENOTE ---
Patient found to be OOB walking to the bathroom without calling for assistance. Patient assisted to bathroom to void. After having a BM the patient reported that she did not feel well but could not give any specifics regarding what 'not feeling
well' meant. The patient was assisted back to the bed where she stated she felt better once she laid down. Right radial site C/D/I, radial pulse palpable. HR 80s-90s. SaO2 on room air 98-99%. BP 142/87. Bed and chair alarm placed. Patient reoriented
to call caldwell use. Bed in lowest position, wheels locked. Care ongoing.
[2025-08-03 03:43] LABS: Hematocrit 37.0 % (37.0-47.0); Hemoglobin 12.6 g/dL (12.0-16.0); Mean Corp Hgb Conc. 34.1 g/dL (33.0-37.0); Mean Corpuscular Volume 82.6 fL (81.0-99.0); Platelet Count 156 10^3/uL (130-400); Red Cell Dist. Width 13.0 % (11.5-14.5)
[2025-08-03 04:22] LABS: Blood Urea Nitrogen 15 mg/dl (7-17); Calcium 8.5 mg/dl (8.4-10.2); Carbon Dioxide 23 mmol/L (22-30); Chloride 111 mmol/L (98-107); Estimated Creatinine Clearance 61 ml/min; Glucose 118 mg/dl (70-99); Potassium 3.8 mmol/L (3.5-5.1); Sodium 139 mmol/L (135-145); eGFR > 60.00
[2025-08-03] MEDS: HEPARIN 25000 UNITS/250 ML IV (04:29)
[2025-08-03] MEDS: SYNTHROID 75 MCG PO (04:29)
--- NOTE | 2025-08-03 07:52 | W.PN.HOSP.TC ---
Today's Communication/Plan
-
diuresis
transition to Eliquis
appreciate Cardiology
PT ordered
Assessment / Plan
Assessment / Plan
Ms. Rebecca Boucher is a 85 yo woman with hx essential HTN, HUGO, HLD, Hypothyroidism, Depression/Anxiety presents to the ER complaining of chest pressure at rest, radiating to shoulder blades. She reported that she didn't take her blood pressure
medications today. Patient's SBP was in 200's in the ER, despite home regimen 4 hours earlier. Initially started Nicardipine but with small dose her SBP dropped to 150's, off of drip, SBP 170's. Admitted to telemetry but overnight patient had
return of chest pain radiating to jaw and increase in Troponin now s/p cardiac cath without obstructive CAD.
CTA
IMPRESSION: Examination is negative for thoracic aortic dissection or aneurysm.
Not mentioned above, the central pulmonary arteries are well-opacified and there is no evidence for central pulmonary embolism.
Mild aortic valvular calcification. Moderate mitral annular calcification.
Small focus of parenchymal opacity in the posterolateral and inferior aspect of the left lower lobe along, probably representing atelectasis and/or scar.
Cardiac Cath 08/02/25
CONCLUSIONS
1. No obstructive CAD.
2. Elevated LVEDP of 22 mmHg.
TTE 08/02/25
SUMMARY
1. Left ventricular ejection fraction is normal with an ejection fraction of 71 % by Pendleton's biplane method of discs.
2. Right ventricular size and systolic function are within normal limits.
3. Mild to moderate aortic stenosis; peak/mean gradients are 22/11 mmHg, calculated PANTERA is 1.4 cm².
4. Compared to a prior transthoracic echocardiogram study from 08/03/2024, slightly progressive aortic stenosis is noted.
Hypertensive Urgency
-blood pressures now better on patient's home regimen
-continue to monitor on ORACLE CONSULTANT Metoprolol, Losartan (holding lisinopril)
-F/U renin/aldosterone ratio
-TTE results above
-Nephrology consult appreciated
Chest pain
Non-ischemic myocardial injury
-appreciate cardiology, s/p cardiac cath without e/o obstructive CAD
Heart failure preserved EF with elevated LVEDP 22 on cardiac cath
-may be 2/2 high blood pressures on admit? discussing with Cardiology and will start diuresis
New diagnosis atrial fibrillation
-on heparin gtt, transition to Eliquis
-ORACLE CONSULTANT Metoprolol
-TTE results above, TSH WNL
-appreciate Cardiology
HUGO
HLD - ORACLE CONSULTANT Statin
Hypothyroidism - ORACLE CONSULTANT Synthroid
Depression/Anxiety - ORACLE CONSULTANT Lexapro
FULL CODE
51 minutes spent on patient care
Anticipated Discharge: 24 - 48 hours
Subjective/Interval History
-
Date of Service: August 03, 2025
denies chest pain, says very mild pressure
no fevers/chills
no swelling
Objective Data
-
Labs:
Laboratory Results
08/02/25 08/02/25 08/03/25
20:30 20:30 03:37
WBC 8.0
Hgb 12.6
Hct 37.0
Plt Count 156
APTT Cancelled Cancelled
Sodium 139
Potassium 3.8
Chloride 111 H
Carbon Dioxide 23
BUN 15
Creatinine 0.7
Glucose 118 H
Calcium 8.5
08/03/25
10:30
WBC
Hgb
Hct
Plt Count
APTT Pending
Sodium
Potassium
Chloride
Carbon Dioxide
BUN
Creatinine
Glucose
Calcium
Vital Signs:
Vital Signs
Temp Pulse Resp BP Pulse Ox
98.2 F 61 20 148/68 98
08/03/25 07:33 08/03/25 06:00 08/03/25 07:33 10/02/25 03:27 08/03/25 07:33
I&O
08/02/25 08/03/25 08/04/25
06:59 06:59 06:59
Intake Total 1050 / 1050 255 / 255
Output Total 350 / 350
Balance 1050 / 1050 -95 / -95
Review of Systems
-
History Source: Patient
All other systems: Reviewed and negative
Physical Exam
-
General: No Apparent Distress
HEENT: PERRLA
Respiratory: Clear to Auscultation; Negative Wheezes
Cardiac: Regular Rhythm and S1/S2
GI: Soft and Nontender
Musculoskeletal: No Edema
Skin: Warm and Dry; Negative Rash
Neuro: AO x 3
Psych: Calm
Data Reviewed
-
Diagnostic Radiology: Report Reviewed by me
Labs: Labs Reviewed by me
--- NOTE | 2025-08-03 07:52 | W.PN.CD ---
Today's Communication / Plan
-
D/C metoprolol.
Start ipylnulcej36.5 mg BID.
Start apixaban 5 mg BID.
D/C heparin gtt.
Furosemide 40 mg IV x1, then 20 mg PO daily.
Discharge planning.
She will need an outpatient BMP in one week.
Impression / Plan
-
Impression/Plan: 85 y/o female with PSVT, HTN and HLD admitted with chest pain, found to be in hypertensive emergency, subsequently complicated by troponin elevation and new atrial fibrillation.
#Troponin elevation:
-Acute.
-Troponin peaked at 0.096.
-Cardiac catheterization shows no occlusive CAD, confirming that this is a non-cardiac troponin elevation, likely due to volatile blood pressure.
-LVEDP = 22 mmHg (could be diastolic dysfunction or elevated due to severe afterload). Furosemide 40 mg IV x1, then 20 mg daily.
-Outpatient BMP in one week.
#Hypertension/Hypertensive Emergency
-Acute on chronic.
-Initial BP on presentation was 205 mmHg systolic.
-Currently tolerating metoprolol succinate 100 mg BID and losartan 100 mg daily.
-I favor changing metoprolol to carvedilol 12.5 mg BID as this will have a more significant BP effect.
#AFIB:
-New diagnosis, type unknown.
-Rate/rhythm control with metoprolol. We will transition to carvedilol.
-CHADS2-Vasc = 4 (HTN, Age x2, Female).
-Therapeutic anticoagulation with heparin gtt. We will transition to DOAC.
#HLD:
-Chronic, stable.
-Total cholesterol = 151, LDL = 82, HDL = 43, Triglycerides = 131.
-Rosuvastatin increased to 20 mg daily.
#Dispo
-IVU status.
-Monitor transition to carvedilol and initiation of DOAC.
-Discharge planning.
Subjective/Interval History:
Cardiac catheterization for elevated troponin and chest pain shows no significant CAD.
LVEDP at the time fo cath was 22 mmHg
Blood pressure remains somewhat mercurial.
She is lapsing back and forth between NSR and atrial flutter on the monitor.
DATA:
Cardiac Catheterization/08/03/2025:
CONCLUSIONS
1. No obstructive CAD.
2. Elevated LVEDP of 22 mmHg.
TTE, 08/02/2025:
SUMMARY
1. Left ventricular ejection fraction is normal with an ejection fraction of 71 % by Pendleton's biplane method of discs.
2. Right ventricular size and systolic function are within normal limits.
3. Mild to moderate aortic stenosis; peak/mean gradients are 22/11 mmHg, calculated PANTERA is 1.4 cm².
4. Compared to a prior transthoracic echocardiogram study from 08/03/2024, slightly progressive aortic stenosis is noted.
CTA Chest, 08/01/2025:
IMPRESSION:
Examination is negative for thoracic aortic dissection or aneurysm.
Not mentioned above, the central pulmonary arteries are well-opacified and there is no evidence for central pulmonary embolism.
Mild aortic valvular calcification. Moderate mitral annular calcification.
Small focus of parenchymal opacity in the posterolateral and inferior aspect of the left lower lobe along, probably representing atelectasis and/or scar.
Physical Exam
Vital Signs/Labs
Vital Signs
Temp Pulse Resp BP Pulse Ox
36.8 C 61 20 148/68 98
08/03/25 07:33 08/03/25 06:00 08/03/25 07:33 08/03/25 03:27 08/03/25 07:33
08/01/25 08/02/25 08/03/25
11:59 11:59 11:59
Actual Weight 78.9 kg 78.5 kg
08/03/25 03:37
08/03/25 03:37
APTT Cancelled 08/02/25 20:30
APTT Cancelled 08/02/25 20:30
Triglycerides 131 mg/dl (10-149) 08/02/25 05:48
LDL Cholesterol, Calc 82 mg/dl 08/02/25 05:48
VLDL Cholesterol, Calc 26 mg/dl (0-30) 08/02/25 05:48
HDL Cholesterol 43 mg/dl 08/02/25 05:48
TSH 2.01 uIU/ml (0.47-4.68) 08/02/25 05:48
LAB Results
08/01/25 08/01/25 08/01/25
13:01 16:15 21:29
Troponin I < 0.012 < 0.012 < 0.012
08/01/25 08/01/25 08/02/25
23:15 23:35 05:48
Troponin I Cancelled < 0.012 0.048 H* D
08/02/25 08/02/25
11:29 19:44
Troponin I 0.096 H* D 0.070 H*
Physical Exam
Constitutional: No acute distress and Comfortable
EENT: Anicteric and Moist mucous membranes
Cardiovascular: Rhythm & rate is regular, Pedal edema is absent, JVD pressure is normal, S1S2 is normal and Murmur/rub/gallop absent
Respiratory: Respiratory effort normal, Lungs clear to auscul., Wheeze Absent, Crackles Absent and Rhonchi Absent
GI: Soft, Distention absent, Flat, Non tender, Normal bowel sounds and Distention present
Neuro/Psych: AO x 3
Other: Cath Site (Right radial access site is C/D/I.)
Data Reviewed
-
Date of Service: August 03, 2025
Medical Decision Making: Reviewed Test Results, Independent Historian Assessment, Test Interpretation and Review of Case with other Provider
EKG: Tracing Personally Visualized and interpreted and Report Reviewed by me
Echo: Report Reviewed by me
X-Ray/CT/US/MRI/NUC/PET: Image Personally Visualized and interpreted and Report Reviewed by me
Medical Tests (PFT, Pathology etc): Report Reviewed by me
Labs: Labs Reviewed by me
Old Records: Reviewed
[2025-08-03 08:49] LABS: Glycohemoglobin (HgbA1c) 6.4 % (4.0-5.6)
[2025-08-03] MEDS: COZAAR 100 MG PO (08:51)
[2025-08-03] MEDS: COREG 12.5 MG PO ×2 (08:54→20:43)
[2025-08-03] MEDS: ELIQUIS 5 MG PO ×2 (08:55→20:43)
[2025-08-03] MEDS: LOW STRENGTH ASPIRIN 81 MG PO (08:55)
[2025-08-03] MEDS: LASIX 40 MG IV (08:55)
[2025-08-03] MEDS: KCL 20 MEQ PO (08:55)
[2025-08-03] MEDS: TOPROL XL PO (09:15)
--- NOTE | 2025-08-03 09:41 | W.PN.NEPH.PH ---
Today's Communication / Plan
-
Sign off
Assessment/Plan
-
Impression
Chest pressure on presentation with uncontrolled hypertension
NSTEMI
New onset atrial fibrillation
History of hypertension
History of hypothyroidism
History of dyslipidemia
Plan:
- I do not believe a secondary hypertensive workup is warranted at this time as her blood pressure is controlled now that she is back on her medications which she did not take yesterday
- Obviously I defer her atrial fibrillation and cardiac issues to cardiology who may be adjusting her antihypertensives to address the aforementioned issues as well
- I would withhold further lisinopril and simply use her current dose of losartan as well as her beta-parth for blood pressure control
- We will sign off
-
-
Date of Service: August 03, 2025
CC / HPI / ROS
-
Chief Complaint:
Hypertension
History of Present Illness:
Hemodynamically stable
Status post left heart cath with no obstructive CAD pulmonary capillary wedge pressure 22
Review of Systems:
No chest pain or shortness of breath
Labs
-
Labs:
WBC 8.0 10^3/uL (4.8-10.8) 08/03/25 03:37
RBC 4.48 10^6/uL (4.20-5.40) 08/03/25 03:37
Hgb 12.6 g/dL (12.0-16.0) 08/03/25 03:37
Hct 37.0 % (37.0-47.0) 08/03/25 03:37
Plt Count 156 10^3/uL (130-400) 08/03/25 03:37
Sodium 139 mmol/L (135-145) 08/03/25 03:37
Potassium 3.8 mmol/L (3.5-5.1) 08/03/25 03:37
Chloride 111 mmol/L (98-107) H 08/03/25 03:37
Carbon Dioxide 23 mmol/L (22-30) 08/03/25 03:37
BUN 15 mg/dl (7-17) 08/03/25 03:37
Creatinine 0.7 mg/dL (0.6-1.0) 08/03/25 03:37
eGFR > 60.00 08/03/25 03:37
Glucose 118 mg/dl (70-99) H 08/03/25 03:37
Calcium 8.5 mg/dl (8.4-10.2) 08/03/25 03:37
Albumin 4.4 g/dl (3.5-5.0) 08/01/25 13:01
Physical Exam
-
Vital Signs:
Vital Signs
Temp Pulse Resp BP Pulse Ox
98.2 F 63 20 152/67 98
08/03/25 07:33 08/03/25 08:54 08/03/25 07:33 08/03/25 08:54 08/03/25 09:07
Cardiovascular:: Regular rate and rhythm
Respiratory:: Bilateral: CTA
Lung Excursion:: Normal
Abdomen:: Nontender and Soft
Bowel Sounds:: Normal
Extremity Edema:: None: Bilateral:
Nagel Catheter: No
--- NOTE | 2025-08-03 12:59 | CM ---
Chart reviewed. Patient sleeping, daughter at bedside. Patient is independent of ADLS, lives with her in a 2 STH, 1st level set up, handicapped accessible , 5 [address], has a SPC in the house. Plan is for the patient to return home. CM to
follow
--- NOTE | 2025-08-03 18:41 | PTCARENOTE ---
Pt c/o mild chest pressure, aware. Heparin infusion discontinued, pt started on eliquis. Pt seen by PT and encouraged to use her walker for safety which she agrees to. Telemetry shows sinus rhythm.
[2025-08-03] MEDS: LEXAPRO 10 MG PO (21:49)
[2025-08-03] MEDS: CRESTOR 20 MG PO (21:49)
--- NOTE | 2025-08-03 22:35 | PTCARENOTE ---
Patient received at change of shift resting in the bed. Right radial cath site with gauze and tegaderm C/D/I. Radial pulse palpable. The patient denies chest pain or pressure at this time. Sinus rhythm/sinus arrhythmia on telemetry. Oxygen
saturation on room air 95-98%. Plan of care discussed. Call caldwell within reach. Care ongoing
[2025-08-04 04:08] VITALS: BP 148/56
[2025-08-04 05:11] LABS: Blood Urea Nitrogen 20 mg/dl (7-17); Calcium 8.8 mg/dl (8.4-10.2); Carbon Dioxide 25 mmol/L (22-30); Chloride 110 mmol/L (98-107); Estimated Creatinine Clearance 61 ml/min; Glucose 123 mg/dl (70-99); Potassium 3.4 mmol/L (3.5-5.1); Sodium 139 mmol/L (135-145); eGFR > 60.00
[2025-08-04] MEDS: SYNTHROID 75 MCG PO (05:34)
--- NOTE | 2025-08-04 07:47 | W.PN.HOSP.TC ---
Today's Communication/Plan
-
expect discharge later this morning if patient feels well after waking up more and walking around
Assessment / Plan
Assessment / Plan
Ms. Rebecca Boucher is a 85 yo woman with hx essential HTN, HUGO, HLD, Hypothyroidism, Depression/Anxiety presents to the ER complaining of chest pressure at rest, radiating to shoulder blades. She reported that she didn't take her blood pressure
medications today. Patient's SBP was in 200's in the ER, despite home regimen 4 hours earlier. Initially started Nicardipine but with small dose her SBP dropped to 150's, off of drip, SBP 170's. Admitted to telemetry but overnight patient had
return of chest pain radiating to jaw and increase in Troponin now s/p cardiac cath without obstructive CAD.
CTA
IMPRESSION: Examination is negative for thoracic aortic dissection or aneurysm.
Not mentioned above, the central pulmonary arteries are well-opacified and there is no evidence for central pulmonary embolism.
Mild aortic valvular calcification. Moderate mitral annular calcification.
Small focus of parenchymal opacity in the posterolateral and inferior aspect of the left lower lobe along, probably representing atelectasis and/or scar.
Cardiac Cath 08/02/25
CONCLUSIONS
1. No obstructive CAD.
2. Elevated LVEDP of 22 mmHg.
TTE 08/02/25
SUMMARY
1. Left ventricular ejection fraction is normal with an ejection fraction of 71 % by Pendleton's biplane method of discs.
2. Right ventricular size and systolic function are within normal limits.
3. Mild to moderate aortic stenosis; peak/mean gradients are 22/11 mmHg, calculated PANTERA is 1.4 cm².
4. Compared to a prior transthoracic echocardiogram study from 08/03/2024, slightly progressive aortic stenosis is noted.
Hypertensive Urgency/ Emergency with component of heart failure and elevated Troponin
-BP improved on patient's home regimen. Metoprolol replaced with Coreg per Cardiology recommendations
-Continue Home Losartan
-Stop Lisinopril
-F/U renin/aldosterone ratio
-Nephrology consult appreciated
Chest pain
Non-ischemic myocardial injury likely in setting of heart failure as above
Heart Failure preserved EF Acute Exacerbation
-LVEDP 22 on cardiac cath
-TTE results above
-s/p Lasix with improvement in symptoms, DC on Lasix 20mg PO QD per cardiology with close follow up BMP
-appreciate cardiology, s/p cardiac cath without e/o obstructive CAD
New diagnosis atrial fibrillation
-new start Eliquis
-[employer] Metoprolol
-TTE results above, TSH WNL
-appreciate Cardiology
HUGO
HLD - [employer] Statin
Hypothyroidism - [employer] Synthroid
Depression/Anxiety - [employer] Lexapro
FULL CODE
51 minutes spent on patient care
Anticipated Discharge: Within 24 hours
Subjective/Interval History
-
Date of Service: August 04, 2025
she is feeling well
no chest pain
urinated a lot yesterday
Objective Data
-
Labs:
Laboratory Results
08/04/25
04:12
Sodium 139
Potassium 3.4 L
Chloride 110 H
Carbon Dioxide 25
BUN 20 H
Creatinine 0.7
Glucose 123 H
Calcium 8.8
Vital Signs:
Vital Signs
Temp Pulse Resp BP Pulse Ox
98.3 F 64 18 148/56 97
08/04/25 04:04 08/04/25 06:00 08/04/25 04:04 08/04/25 04:08 08/04/25 04:04
I&O
08/03/25 08/04/25 08/05/25
06:59 06:59 06:59
Intake Total 255 / 255 400 / 400
Output Total 350 / 350 350 / 350
Balance -95 / -95 50 / 50
Review of Systems
-
History Source: Patient
All other systems: Reviewed and negative
Physical Exam
-
General: No Apparent Distress
HEENT: PERRLA
Respiratory: Clear to Auscultation; Negative Wheezes
Cardiac: Regular Rhythm and S1/S2
GI: Soft and Nontender
Musculoskeletal: No Edema
Skin: Warm and Dry; Negative Rash
Neuro: AO x 3
Psych: Calm
Data Reviewed
-
Diagnostic Radiology: Report Reviewed by me
Labs: Labs Reviewed by me
[2025-08-04 07:57] VITALS: BP 178/63
[2025-08-04] MEDS: KCL 40 MEQ PO (08:50)
[2025-08-04] MEDS: COREG 12.5 MG PO (08:51)
[2025-08-04] MEDS: COZAAR 100 MG PO (08:51)
[2025-08-04] MEDS: LOW STRENGTH ASPIRIN 81 MG PO (08:51)
[2025-08-04] MEDS: ELIQUIS 5 MG PO (08:51)
[2025-08-04] MEDS: LASIX 20 MG PO (08:52)
--- NOTE | 2025-08-04 09:06 | W.PN.CD ---
Today's Communication / Plan
-
Carvedilol 12.5 mg PO x1 now.
Increase dose to 25 mg BID.
If more BP control needed, we will start spironolactone.
Maintain furosemide 20 mg PO daily.
Outpatient BMP in a few days.
Hydralazine 10 mg PO TID PRN for SBP > 170 mmHg.
LFT's.
EKG.
Discharge planning.
Impression / Plan
-
Impression/Plan: 85 y/o female with PSVT, HTN and HLD admitted with chest pain, found to be in hypertensive emergency, subsequently complicated by troponin elevation and new atrial fibrillation.
#Troponin elevation:
-Acute.
-Troponin peaked at 0.096.
-Cardiac catheterization shows no occlusive CAD, confirming that this is a non-cardiac troponin elevation, likely due to volatile blood pressure.
-LVEDP = 22 mmHg (could be diastolic dysfunction or elevated due to severe afterload). Furosemide 20 mg daily. Outpatient BMP in one week.
#Hypertension/Hypertensive Emergency
-Acute on chronic.
-Initial BP on presentation was 205 mmHg systolic.
-Increase carvedilol to 25 mg BID and continue losartan 100 mg daily.
-If more BP control consistently needed, we will start spironolactone.
-She may benefit from hydralazine PRN at home for SBP of > 170-180 mmHg.
#AFIB:
-New diagnosis, type unknown.
-Rate/rhythm control with carvedilol.
-CHADS2-Vasc = 4 (HTN, Age x2, Female).
-Therapeutic anticoagulation with apixaban.
#HLD:
-Chronic, stable.
-Total cholesterol = 151, LDL = 82, HDL = 43, Triglycerides = 131.
-Rosuvastatin 20 mg daily.
#Right shoulder pain
-Acute.
-DDx includes MSK vs. referred from intrathoracic/intra-abdominal pathology.
-She is s/p remote cholecystectomy.
-Check EKG.
-Check LFT's.
-Conservative management in the mean time.
#Dispo
-IVU status.
-Monitor transition to carvedilol and initiation of DOAC.
-Discharge planning.
Subjective/Interval History:
Transitioned to carvedilol 12.5 mg BID yesterday.
BP remains moderately uncontrolled, then 178/63 mmHg this morning.
She describes right should blade pain without SOB/abdominal pain/nausea.
DATA:
Cardiac Catheterization/08/03/2025:
CONCLUSIONS
1. No obstructive CAD.
2. Elevated LVEDP of 22 mmHg.
TTE, 08/02/2025:
SUMMARY
1. Left ventricular ejection fraction is normal with an ejection fraction of 71 % by Pendleton's biplane method of discs.
2. Right ventricular size and systolic function are within normal limits.
3. Mild to moderate aortic stenosis; peak/mean gradients are 22/11 mmHg, calculated PANTERA is 1.4 cm².
4. Compared to a prior transthoracic echocardiogram study from 08/03/2024, slightly progressive aortic stenosis is noted.
CTA Chest, 08/01/2025:
IMPRESSION:
Examination is negative for thoracic aortic dissection or aneurysm.
Not mentioned above, the central pulmonary arteries are well-opacified and there is no evidence for central pulmonary embolism.
Mild aortic valvular calcification. Moderate mitral annular calcification.
Small focus of parenchymal opacity in the posterolateral and inferior aspect of the left lower lobe along, probably representing atelectasis and/or scar.
Physical Exam
Vital Signs/Labs
Vital Signs
Temp Pulse Resp BP Pulse Ox
36.9 C 62 18 178/63 97
08/04/25 07:58 08/04/25 08:00 08/04/25 07:58 08/04/25 07:57 08/04/25 08:58
08/02/25 08/03/25 08/04/25
11:59 11:59 11:59
Actual Weight 78.9 kg 78.5 kg
08/03/25 03:37
08/04/25 04:12
APTT Cancelled 08/03/25 10:30
Triglycerides 131 mg/dl (10-149) 08/02/25 05:48
LDL Cholesterol, Calc 82 mg/dl 08/02/25 05:48
VLDL Cholesterol, Calc 26 mg/dl (0-30) 08/02/25 05:48
HDL Cholesterol 43 mg/dl 08/02/25 05:48
TSH 2.01 uIU/ml (0.47-4.68) 08/02/25 05:48
LAB Results
08/01/25 08/01/25 08/01/25
13:01 16:15 21:29
Troponin I < 0.012 < 0.012 < 0.012
08/01/25 08/01/25 08/02/25
23:15 23:35 05:48
Troponin I Cancelled < 0.012 0.048 H* D
08/02/25 08/02/25
11:29 19:44
Troponin I 0.096 H* D 0.070 H*
Physical Exam
Constitutional: No acute distress and Comfortable
EENT: Anicteric and Moist mucous membranes
Cardiovascular: Rhythm & rate is regular, Pedal edema is absent, JVD pressure is normal, S1S2 is normal and Murmur/rub/gallop absent
Respiratory: Respiratory effort normal, Lungs clear to auscul., Wheeze Absent, Crackles Absent and Rhonchi Absent
GI: Soft, Distention absent, Flat, Non tender and Normal bowel sounds
Neuro/Psych: AO x 3
Other: Cath Site (Right radial access site is C/D/I.)
Data Reviewed
-
Date of Service: August 04, 2025
Medical Decision Making: Reviewed Test Results, Independent Historian Assessment and Test Interpretation
EKG: Tracing Personally Visualized and interpreted and Report Reviewed by me
Echo: Report Reviewed by me
X-Ray/CT/US/MRI/NUC/PET: Image Personally Visualized and interpreted and Report Reviewed by me
Medical Tests (PFT, Pathology etc): Image Personally Visualized and interpreted and Report Reviewed by me
Labs: Labs Reviewed by me
Old Records: Reviewed
[2025-08-04 09:21] VITALS: BMI 28.8
[2025-08-04 10:18] VITALS: BP 136/56
[2025-08-04 10:34] LABS: ALT (SGPT) 13 U/L (0-35); AST (SGOT) 16 U/L (14-36); Albumin 3.7 g/dl (3.5-5.0); Alkaline Phosphatase 63 U/L (38-126); Lipase 54 U/L (23-300); Magnesium 1.8 mg/dl (1.6-2.3); Total Protein 5.6 g/dl (6.3-8.2)
[2025-08-04 11:27] VITALS: BP 147/65
--- NOTE | 2025-08-04 11:36 | CM ---
Pricing on [employer] through the patient's [employer], ID# [id number], is $125 for a 30 day supply. Patient is agreeable to cost. I placed a free 30 day coupon in the patient's red discharge folder
--- NOTE | 2025-08-04 11:38 | CM ---
Chart reviewed. Patient is independent of ADLS, lives with her in a 2 [address], 1st floor set up, 5 [address], handicapped accessible bathroom. Patient is not current with VN. Referral sent to [facility]. Plan is for the patient to return home with
[facility]. CM to follow
--- NOTE | 2025-08-04 12:04 | W.DS.TRANS ---
DC Summary - [facility]
-
Discharge Instructions:
Discharge Diagnosis/Procedures Hypertensive Emergency with Evidence of Fluid
Overload
Diet 2 Gram Sodium
Activity As tolerated
Driving Restrictions As prior to admission
Bathing Restrictions None
Blood Work BMP in one 5-7 days
Other Services VN,PT
Specialty Instructions Weigh Daily
Instructions:
Stand-Alone Forms:
Changes to Home Medications: Yes
Discharge Medications:
DC Medications w/original date entered in [employer]
escitalopram oxalate 10 mg tablet 10 mg PO HS Depression 11/16/15
levothyroxine 75 mcg tablet 75 mcg PO DAILY Thyroid 11/16/15
rosuvastatin 5 mg tablet 5 mg PO HS High Cholesterol 01/10/16
losartan 100 mg tablet 100 mg PO DAILY Blood Pressure 09/17/23
apixaban 5 mg tablet (Eliquis) 5 mg PO BID #60 tabs 08/02/25
carvedilol 12.5 mg tablet 12.5 mg PO BID #60 tabs 08/04/25
furosemide 20 mg tablet 20 mg PO DAILY #30 tabs 08/04/25
Home Medication Changes
STOP METOPROLOL, this is replaced with Carvedilol
STOP LISINOPRIL (as you are already on Losartan and they should not be taken together)
You are newly started on Eliquis twice a day for stroke prevention. You will need refills as outpatient.
You are newly started on Lasix daily to keep fluid off. You will need repeat labs in 5-7 days to monitor kidney function. Do not take if you feel dizzy or lightheaded (that could indicate you are dehydrated).
Pending Results: No
--- NOTE | 2025-08-04 13:22 | W.DCSUMMARY ---
Discharge Summary
Discharge Data
Date of Admission: 08/01/25
Date of Discharge: 08/04/25
-
Pending Results: Yes
Additional Pending Results:
renin/aldosterone ratio
Hospital Course
Discharging Physician :
Disposition :
Primary care physician : Dr. Rebekah Monteengro
Principal Discharge diagnosis : Hypertensive Emergency/ volume overload and non-ischemic Troponin Elevation; atypical chest pain
Hospital Course :
Ms. Rebecca Boucher is a 85 yo woman with hx essential HTN, HUGO, HLD, Hypothyroidism, Depression/Anxiety presents to the ER complaining of chest pressure at rest, radiating to shoulder blades. She reported that she didn't take her blood pressure
medications that day.. Patient's SBP was in 200's in the ER, despite home regimen given in ER 4 hours earlier. She was started Nicardipine given concern for hypertensive urgency/emergency but with small dose her SBP dropped to 150's.
She was admitted to telemetry and SBP remained better controlled without need for PRN medications. However, overnight patient had worsening of chest discomfort. She was also noted to go into new atrial fibrillation. Concern raised for NSTEMI, she
was transferred to the IVU and started on an IV Heparin gtt. Her Troponins increased to peak 0.096. She was taken for cardiac cath with finding of non-obstructive coronary artery disease but elevated filling pressures.
Possible that increased fluid/heart failure resulted in chest discomfort as she was given diuresis and felt improved. Per Cardiology, her home blood pressure regimen changed from Metop XL to Coreg 12.5mg PO BID. She tolerated this change well She
is kept on her home Losartan. She is newly prescribed Lasix 20mg daily with plans for close outpatient labs.
Regarding atrial fibrillation, she self converted back to sinus rhythm. HR controlled on Coreg. She is newly started on Eliquis.
Patient will have BMP in one week, close follow up with PCP and Cardiology.
She is told to check her blood pressure on this new regimen with Coreg and report results to outpatient providers.
Time spent on discharge was 35 minutes.
Important imaging findings :
CTA 08/01/25
IMPRESSION: Examination is negative for thoracic aortic dissection or aneurysm.
Not mentioned above, the central pulmonary arteries are well-opacified and there is no evidence for central pulmonary embolism.
Mild aortic valvular calcification. Moderate mitral annular calcification.
Small focus of parenchymal opacity in the posterolateral and inferior aspect of the left lower lobe along, probably representing atelectasis and/or scar.
TTE 08/02/25
SUMMARY
1. Left ventricular ejection fraction is normal with an ejection fraction of 71 % by Pendleton's biplane method of discs.
2. Right ventricular size and systolic function are within normal limits.
3. Mild to moderate aortic stenosis; peak/mean gradients are 22/11 mmHg, calculated PANTERA is 1.4 cm².
4. Compared to a prior transthoracic echocardiogram study from 08/03/2024, slightly progressive aortic stenosis is noted.
Procedure findings :
Cardiac Cath 08/02/25
CONCLUSIONS
1. No obstructive CAD.
2. Elevated LVEDP of 22 mmHg.
Discharge Plan
-
Patient Disposition: Home with Home Care
Discharge Diagnosis/Procedures: Hypertensive Emergency with Evidence of Fluid Overload
Diet: 2 Gram Sodium
Activity: As tolerated
Driving Restrictions: As prior to admission
Bathing Restrictions: None
Blood Work: BMP in one 5-7 days
Other Services: VN and PT
Specialty Instructions: Weigh Daily- Call MD for wt gain/loss 3 lbs overnight/5 lbs in 1 week
Referrals:
[facility] [Outside]
Marie Rose MD [Family Provider, Internal Medicine] - in less than 1 week
Additional Discharge Medication Instructions: STOP METOPROLOL, this is replaced with Carvedilol
STOP LISINOPRIL (as you are already on Losartan and they should not be taken together)
You are newly started on Eliquis twice a day for stroke prevention. You will need refills as outpatient.
You are newly started on Lasix daily to keep fluid off. You will need repeat labs in 5-7 days to monitor kidney function. Do not take if you feel dizzy or lightheaded (that could indicate you are dehydrated).
Check your blood pressures at home 90 minutes after morning Losartan and Carvedilol dose. Check when you are sitting down and relaxed. Report results to PCP and Chart Computer.
Prescriptions:
New
Eliquis 5 mg tablet
5 mg PO BID Qty: 60 0RF
carvedilol 12.5 mg Tablet
12.5 mg PO BID Qty: 60 0RF
furosemide 20 mg Tablet
20 mg PO DAILY Qty: 30 0RF
Continued
levothyroxine 75 MCG tablet
75 mcg PO DAILY
escitalopram oxalate 10 MG tablet
10 mg PO HS
rosuvastatin 5 MG tablet
5 mg PO HS
losartan 100 mg tablet
100 mg PO DAILY
Discontinued
metoprolol succinate 100 MG tablet extended release 24 hr
100 mg PO BID
Discharge Orders:
Discharge Patient (As Directed); Ordered 08/04/25
Ordered By: Rebekah Montenegro
Care Plan Goals
Care Plan Goals:
Problem: Readiness for enhanced knowledge related to diagnosis and treatment plan
Goal: Understand your diagnosis and treatment plan needs, including medications if applicable.
Instructions: Know your diagnosis, underlying causes and treatment plan options, including medications if applicable. Consult with your health care team to learn about your diagnosis and treatment plan, including medications if applicable.
Discharge Date and Time
Print Language: [id number]
[2025-08-04] MEDS: FLUZONE HIGH-DOSE 2025-26 0.5 ML IM (13:55)
--- NOTE | 2025-08-04 15:04 | PTCARENOTE ---
Pt feeling weak and tired after morning BP meds, SBP down from 178 to 136. notified, ECG done, carvedilol kept at same dose of 12.5mgs. Pt later able to walk in halls without problem. Pt seen by Jeffrey and Chidi. Telemetry and IV
devices removed. Discharge instructions reviewed with pt and her regarding medications and their possible side effects and which medications are discontinued, wound care, activity guidelines, reporting cares and concerns and follow up
appt's. Very good understanding taught back to this RN. Pt escorted out via wheelchair and discharged to home, materials faxed to [facility].
[2025-08-05 09:25] LABS: Renin Activity Results <0.1 ng/mL/hr
== END 2025-08-04 14:45 | disposition home health service (06) | DRG 286 ==
LOC: IVU 18:24
PROVIDERS: Internal Medicine Cardiovascular Disease; Internal Medicine Interventional Cardiology; Nurse Practitioner Family; Registered Nurse; ADMITTING PHYSICIAN Student in an Organized Health Care Education/Training Program; EMERGENCY PHYSICIAN Emergency Medicine; FAMILY PHYSICIAN Internal Medicine; OTHER PHYSICIAN Internal Medicine; OTHER PHYSICIAN Specialist
PROC: 4A023N7 Measurement of Cardiac Sampling and Pressure, Left Heart, Percutaneous Approach (ICD-10-PCS; 2025-08-03)
PROC: B2111ZZ Fluoroscopy of Multiple Coronary Arteries using Low Osmolar Contrast (ICD-10-PCS; 2025-08-03)
DX: I11.0 Hypertensive heart disease with heart failure (principal); I50.33 Acute on chronic diastolic (congestive) heart failure; I16.1 Hypertensive emergency; I47.10 Supraventricular tachycardia, unspecified; E87.70 Fluid overload, unspecified; G47.33 Obstructive sleep apnea (adult) (pediatric); E03.9 Hypothyroidism, unspecified; F41.9 Anxiety disorder, unspecified; F32.A Depression, unspecified; I48.91 Unspecified atrial fibrillation; I08.0 Rheumatic disorders of both mitral and aortic valves; E78.00 Pure hypercholesterolemia, unspecified; G25.0 Essential tremor; H81.20 Vestibular neuronitis, unspecified ear; Z79.890 Hormone replacement therapy; Z79.899 Other long term (current) drug therapy; Z85.828 Personal history of other malignant neoplasm of skin; Z90.710 Acquired absence of both cervix and uterus; I5A Non-ischemic myocardial injury (non-traumatic)
CPT/HCPCS: 71275; 80048; 80053; 80061; 82088; 82248; 82962; 83036; 83690; 83735; 84244; 84443; 84484; 85025; 85027; 85730; 90662; 93005; 93306; 93458; 96365; 97162; 99152; 99285; C1769; C1894; G0008; Q9967